=== PATIENT | female | born 2000 | race American Indian/Alaskan Native ===

== ENCOUNTER 2022-01-04 23:46 | Outpatient (CLI) | payer MEDICAID ==
[~2022-01-04 23:46] MED LIST: LACTATED RINGERS 500 ML IV ONE
[2022-01-04] MEDS ORDERED: LACTATED RINGERS 500 ML IV ONE (23:59)
[2022-01-05] MEDS ORDERED: ACETAMINOPHEN 325 MG TAB PO NR (01:07)
[2022-01-05] MEDS ORDERED: oxyCODONE /ACETAMINOPHEN 5-325MG TAB PO NR (02:38)
[2022-01-05] MEDS ORDERED: LACTATED RINGERS 1,000 ML ONE (02:39)
--- NOTE | 2022-01-05 03:19 | Ultrasound Report ---
ULTRASOUND BIOPHYSICAL PROFILE Obstetrical ultrasound limited INDICATION / CLINICAL INFORMATION: well-being COMPARISON: None available. FINDINGS: BREATHING MOVEMENT = 2 GROSS BODY MOVEMENT = 2 TONE = 2 QUALITATIVE AMNIOTIC FLUID VOLUME = 2 TOTAL BIOPHYSICAL SCORE = 8/8 PRESENTATION: Cephalic. HEART RATE (beats per minute): 146 IMPRESSION: 1. biophysical profile = 8/8 2. No significant abnormality appreciated within the placenta. Signer Name: Shiv Dale MD Signed: 01/05/2022 3:15 AM Workstation Name: [email or web address]
== END 2022-01-05 04:06 | disposition home or self-care (01) ==
LOC: TRG 23:46 → APU 01-05 00:07 → TRG 01-05 04:06
PROVIDERS: ATTEND Obstetrics & Gynecology
DX: O26.893 Other specified pregnancy related conditions, third trimester (principal); W10.9XXA Fall (on) (from) unspecified stairs and steps, initial encounter; O99.213 Obesity complicating pregnancy, third trimester; E66.01 Morbid (severe) obesity due to excess calories; O99.013 Anemia complicating pregnancy, third trimester; D64.9 Anemia, unspecified; Z3A.34 34 weeks gestation of pregnancy; Y93.89 Activity, other specified; Y92.89 Other specified places as the place of occurrence of the external cause; Y99.8 Other external cause status
CPT/HCPCS: 59025; 76815; 76819; J7120; 96360

== ENCOUNTER 2022-01-28 00:09 | Observation (INO) | payer MEDICAID ==
[2022-01-28] MEDS ORDERED: LACTATED RINGERS 1,000 ML ONE (01:14)
[2022-01-28 01:53] LABS: Hematocrit 32.6 % (30.3-42.9); Mean Corpuscular HGB Conc 31 % (30-34); Mean Corpuscular Volume 81 fl (79-97); Platelet Count 192 K/mm3 (140-440); Red Blood Count 4.04 M/mm3 (3.65-5.03); Red Cell Distribution Width 16.8 % (13.2-15.2)
[2022-01-28 03:50] LABS: Basophils % (Manual) 0 % (0.0-1.8); Eosinophils % (Manual) 0 % (0.0-4.3); Total Cells Counted 100
[2022-01-28 03:51] LABS: Anisocytosis Few; Hypochromasia 1+
[2022-01-28 03:52] LABS: Platelet Estimate Consistent w Auto; Tear Drop Cells Rare
--- NOTE | 2022-01-28 03:55 | Ultrasound Report ---
US OB BPP wo non-stress INDICATION / CLINICAL INFORMATION: well being COMPARISON: Limited OB ultrasound same date. TECHNIQUE: Using transcutaneous probe, multiple grayscale and color Doppler/M mode Doppler images wer e captured and stored of the fetus for purposes of biophysical profile. FINDINGS: BREATHING MOVEMENT = 2 GROSS BODY MOVEMENT = 0 TONE = 0 QUALITATIVE AMNIOTIC FLUID VOLUME = 2 TOTAL BIOPHYSICAL SCORE = 4/8 Single cephalic fetus with heart rate of 152 bpm. IMPRESSION: 1. biophysical profile score 4/8. Signer Name: Brandon Lyn II, MD Signed: 01/28/2022 3:50 AM Workstation Name: [email or web address]
[2022-01-28] MEDS ORDERED: LACTATED RINGERS 1,000 ML IV SCH (04:00)
[2022-01-28] MEDS ORDERED: ACETAMINOPHEN 325 MG TAB PO PRN (05:00)
[2022-01-28] MEDS ORDERED: PRENATAL VIT27-FE FUMARATE-FOLIC ACID VIT TAB PO SCH (10:00)
[2022-01-28] MEDS ORDERED: DOCUSATE SODIUM 100 MG CAP PO PRN (10:00)
[2022-01-28 11:05] VITALS: BP 107/68
--- NOTE | 2022-01-28 11:41 | Ultrasound Report ---
ULTRASOUND OBSTETRIC LIMITED ULTRASOUND BIOPHYSICAL PROFILE INDICATION / CLINICAL INFORMATION: wellbeing. Clinical Gestational Age (GA) in weeks, days: 37 weeks 6 days TECHNIQUE: Transabdominal. COMPARISON: Biophysical profile performed earlier today. FINDINGS: BREATHING MOVEMENT = 2 GROSS BODY MOVEMENT = 2 TONE = 2 QUALITATIVE AMNIOTIC FLUID VOLUME = 2 TOTAL BIOPHYSICAL SCORE = 8/8 HEART RATE (beats per minute): 161 bpm PRESENTATION: Cephalic. ADDITIONAL FINDINGS: None. IMPRESSION: 1. Biophysical Score = 8/8 Scribed by: Betty Clifton RDMS, RVT, [place] Scribed: 01/28/2022 9:20 AM I have reviewed the images, agree with this report, and edited this report as needed. Signer Name: Talha Paz MD Signed: 01/28/2022 11:37 AM Workstation Name: [email or web address]
== END 2022-01-28 11:23 | disposition home or self-care (01) ==
LOC: TRG 00:09 → APU 00:10 → TRG 03:47 → LD 04:35
PROVIDERS: ADMIT Obstetrics & Gynecology; ATTEND Obstetrics & Gynecology
DX: O62.9 Abnormality of forces of labor, unspecified (principal); Z20.822 Contact with and (suspected) exposure to COVID-19; Z3A.37 37 weeks gestation of pregnancy
CPT/HCPCS: 36415; 59025; 76819; 85025; 86850; 86900; 86901; 96360; G0378; J7120; U0003; 85007